=== PATIENT | male | born 1930 | race Caucasian/White ===

== ENCOUNTER 2018-02-25 11:18 | Inpatient (IN) | payer OTHER ==
[2018-02-25 13:05] VITALS: BMI 28.6
--- NOTE | 2018-02-25 13:56 | HP ---
Admission ROS [facility] [place] [facility] Chief Complaint: Patient presents for rehab services for ETOH dependence. Allergies/Adverse Reactions: Allergies Allergy/AdvReac Type Severity Reaction Status Date / Time No Known Allergies Allergy Verified 02/25/18 13:47 History of Present Illness: Patient presents for rehab services for ETOH dependence. Recently completed detox at [facility] from 02/19/18-02/24/18. Patient started drinking ETOH at age 67. Drinks up to one pint of vodka daily. Reports having seizure from ETOH use in 2014. Last drink 02/19/18. Patient denies history of Hep C and HIV. Refused to be tested. Has PMH of DM, HTN, HLD, BPH and constipation. Denies SI/HI and suicide attempts. Exam Limitations: No Limitations - Ebola screening Have you traveled outside of the country in the last 21 days: No Have you had contact with anyone from an Ebola affected area: No Have you been sick,other than usual withdrawal symptoms: No Do you have a fever: No - Review of Systems Constitutional: Loss of Appetite, Weight Stable EENT: reports: No Symptoms Reported Respiratory: reports: No Symptoms reported Cardiac: reports: No Symptoms Reported GI: reports: Constipated, Poor Fluid Intake : reports: Frequency Musculoskeletal: reports: Back Pain, Joint Pain Integumentary: reports: No Symptoms Reported Neuro: reports: Seizure, Unsteady Gait Endocrine: reports: No Symptoms Reported Hematology: reports: No Symptoms Reported Psychiatric: reports: Orientated x3, Anxious Patient History - Patient Medical History Hx Anemia: No Hx Asthma: No Hx Chronic Obstructive Pulmonary Disease (COPD): No Hx Cancer: No Hx Cardiac Disorders: No Hx Congestive Heart Failure: No Hx Hypertension: Yes Hx Hypercholesterolemia: Yes Hx Pacemaker: No HX Cerebrovascular Accident: No Hx Seizures: Yes (alcohol related in 2014) Hx Dementia: No Hx Diabetes: Yes (IDDM) Hx Gastrointestinal Disorders: No Hx Liver Disease: No Hx Genitourinary Disorders: No Hx Sexually Transmitted Disorders: No Hx Renal Disease (ESRD): No Hx Thyroid Disease: No Hx Human Immunodeficiency Virus (HIV): No Hx Hepatitis C: No Hx Depression: No Hx Suicide Attempt: No Hx Bipolar Disorder: No Hx Schizophrenia: No - Patient Surgical History Past Surgical History: Yes Hx Neurologic Surgery: No Hx Cataract Extraction: Yes (bilateral in 2015) Hx Cardiac Surgery: No Hx Lung Surgery: No Hx Breast Surgery: No Hx Breast Biopsy: No Hx Abdominal Surgery: No Hx Appendectomy: No Hx Cholecystectomy: No Hx Genitourinary Surgery: No Hx Section: No Hx Orthopedic Surgery: No Anesthesia Reaction: No - PPD History Previous Implant?: No Documented Results: Positive w/o proof PPD to be Administered?: No - Smoking Cessation Smoking history: Never smoked Have you smoked in the past 12 months: No Hx Chewing Tobacco Use: No Initiated information on smoking cessation: No - Substance & Tx. History Hx Alcohol Use: Yes Hx Substance Use: No Substance Use Type: Alcohol Hx Substance Use Treatment: Yes (S/P detox at [facility] 02/19-02/24/18) - Substances Abused Alcohol-vodka Route: Oral Frequency: Daily Amount used: 1 pt. Age of first use: 67 Date of Last Use: 02/19/18 Family Disease History - Family Disease History Family History: Denies Admission Physical Exam BHS - Vital Signs Vital Signs: Vital Signs - 24 hr 02/25/18 13:02 Temperature 99.7 F H Pulse Rate 98 H Respiratory 20 Rate Blood Pressure 137/87 - Physical General Appearance: Yes: No Apparent Distress, Appropriately Dressed, Anxious HEENTM: Yes: EOMI, Hearing grossly Normal, Normal ENT Inspection, Normocephalic , Normal Voice, MADAY, Pharynx Normal Respiratory: Yes: Chest Non-Tender, Lungs Clear, Normal Breath Sounds, No Respiratory Distress, No Accessory Muscle Use Neck: Yes: No masses,lesions,Nodules, Supple, Trachea in good position Breast: Yes: Breast Exam Deferred Cardiology: Yes: Regular Rhythm, Regular Rate, S1, S2 Abdominal: Yes: Normal Bowel Sounds, Non Tender, Soft Genitourinary: Yes: Frequency Back: Yes: Within Normal Limits Musculoskeletal: Yes: Back pain Extremities: Yes: Normal Inspection, Non-Tender Neurological: Yes: drop board man II-XII NML intact, Fully Oriented, Alert, Normal Response Integumentary: Yes: Normal Color, Dry, Warm Lymphatic: Yes: Within Normal Limits - Diagnostic (1) Alcohol dependence Current Visit: Yes Status: Acute Qualifiers: Substance use status: unspecified alcohol-induced disorder Qualified Code(s ): F10.29 - Alcohol dependence with unspecified alcohol-induced disorder (2) HTN (hypertension) Current Visit: Yes Status: Chronic Qualifiers: Hypertension type: essential hypertension Qualified Code(s): I10 - Essential (primary) hypertension (3) Diabetes 1.5, managed as type 2 Current Visit: Yes Status: Chronic (4) HLD (hyperlipidemia) Current Visit: Yes Status: Chronic Qualifiers: Hyperlipidemia type: unspecified Qualified Code(s): E78.5 - Hyperlipidemia , unspecified (5) Anxiety Current Visit: Yes Status: Suspected (6) BPH (benign prostatic hyperplasia) Current Visit: Yes Status: Acute Qualifiers: Lower urinary tract symptom detail: unspecified Cleared for Admission BHS - Detox or Rehab Claeared for Rehab Admission: Yes BHS Breath Alcohol Content Breath Alcohol Content: 0 Urine Drug Screen - Results Drug Screen Negative: No Urine Drug Screen Results: BZO-Benzodiazepines Inpatient Rehab Admission - Initial Determination Are CD services needed?: Yes Free of communicable disease: Yes Not in need of hospitalization: Yes - Rehab Admission Criteria Previous failed treatment: Yes Poor recovery environment: Yes Comorbidities: Yes Lacks judgement: Yes Patient is meeting Inpatient Rehab admission criteria:: Yes
[2018-02-25] MEDS ORDERED: ACETAMINOPHEN 325 MG TABLET (FP) PO PRN (13:59)
[2018-02-25] MEDS ORDERED: P-EPHED 60MG/TRIPROLIDI 2.5MG TABLET PO PRN (13:59)
[2018-02-25] MEDS ORDERED: LOPERAMIDE HCL 2 MG CAPSULE PO PRN (13:59)
[2018-02-25] MEDS ORDERED: hydrOXYzine PAMOATE 50 MG CAPSULE (FP) PO PRN (13:59)
[2018-02-25] MEDS ORDERED: MENTHOL/PHENOL 1 EACH UD MM PRN (13:59)
[2018-02-25] MEDS ORDERED: MAGNESIUM CITRATE 300 ML BOTTLE PO PRN (13:59)
[2018-02-25] MEDS ORDERED: MAG HYDROX/AL HYDROX/SIMETH 30 ML UNIT-DOSE CUP PO PRN (13:59)
[2018-02-25] MEDS ORDERED: MAGNESIUM HYDROX 2400MG/30ML ORAL SUSPENSION 30 ML CUP PO PRN (13:59)
[2018-02-25] MEDS ORDERED: MECLIZINE HCL 25 MG TABLET (FP) PO PRN (14:00)
[2018-02-25 16:18] LABS: HEMATOCRIT 42.6 % (35.4-49); HEMOGLOBIN 14.1 GM/dL (11.7-16.9); MCHC 33.2 g/dl (32.0-35.9); MEAN CELL VOLUME 96.5 fl (80-96); MEAN PLT VOLUME 11.2 fl (7.5-11.1); PLATELET COUNT 165 K/MM3 (134-434); RBC 4.42 M/mm3 (4.00-5.60); RDW 14.5 % (11.9-15.9); WHITE BLOOD COUNT 6.4 K/mm3 (4.0-10.0)
[2018-02-25 16:34] LABS: ALBUMIN 4.2 g/dl (3.4-5.0); ANION GAP 8 (8-16); BLOOD UREA NITROGEN 20 mg/dL (7-18); CALCIUM 9.2 mg/dL (8.5-10.1); CHLORIDE 104 mmol/L (98-107); CO2 25 mmol/L (21-32); CREATININE 2.2 mg/dL (0.7-1.3); GLUCOSE,RANDOM 296 mg/dL (74-106); POTASSIUM 4.1 mmol/L (3.5-5.1); SGOT/AST 50 U/L (15-37); SGPT/ALT 55 U/L (12-78); SODIUM 137 mmol/L (136-145)
[2018-02-25 16:35] LABS: ALK PHOS 164 U/L (45-117); BILIRUBIN,TOTAL 0.8 mg/dL (0.2-1.0); TOT PROT 8.4 g/dl (6.4-8.2)
[2018-02-25] MEDS: INSULIN SLIDING SCALE (NOVOLOG) 1 VIAL SQ SCH (17:42)
[2018-02-25] MEDS: ATORVASTATIN CA 80 MG TABLET (FP) PO SCH (21:14)
[2018-02-25] MEDS: THIAMINE HCL 100 MG TABLET (FP) PO SCH (21:14)
[2018-02-25] MEDS: GABAPENTIN 100 MG CAPSULE (FP) PO SCH (21:14)
[2018-02-25] MEDS: LATANOPROST 0.005% OPHTH SOLN 2.5ML BOTTLE OD SCH (21:15)
[2018-02-25] MEDS: BRIMONIDINE TARTRATE 0.2% OPHTHALMIC 5 ML BOTTLE OD SCH (21:16)
[2018-02-25] MEDS: INSULIN (LEVEMIR) 100 UNITS/ML UNITS SQ SCH (21:17)
[2018-02-25] MEDS ORDERED: MELATONIN 5 MG TABLETS PO PRN (22:00)
[2018-02-25] MEDS: PATIENT'S OWN MEDICATION (NON-FORMULARY) (Dorzolamide Hcl/Timolol Maleat [Cosopt Eye Drops OU SCH (22:29)
[2018-02-25] MEDS ORDERED: PT OWN MED DRAWER 7, Y5N ONE (22:31)
[2018-02-25 23:22] LABS: URINE APPEARANCE TURBID; URINE BILIRUBIN NEGATIVE (<2.0 mg/dL); URINE BLOOD NEGATIVE (NEGATIVE); URINE COLOR AMBER; URINE GLUCOSE (UA) 2+ (NEGATIVE); URINE KETONE NEGATIVE (NEGATIVE); URINE LEUK ESTERASE NEGATIVE (NEGATIVE); URINE NITRITE NEGATIVE (NEGATIVE); URINE UROBILINOGEN NEGATIVE mg/dL (0.2-1.0)
[2018-02-25 23:25] LABS: URINE PROTEIN 2+ (NEGATIVE)
[2018-02-25 23:32] LABS: URINE BACTERIA RARE /hpf (NONE SEEN); URINE MUCUS RARE
[2018-02-26] MEDS ORDERED: INSULIN (NOVOLOG) ASPART 100 UNITS/ML 10ML VIAL ONE (07:07)
[2018-02-26] MEDS: INSULIN SLIDING SCALE (NOVOLOG) 1 VIAL SQ SCH ×2 (07:07→16:56)
--- NOTE | 2018-02-26 08:49 | EKG ---
Test Reason : Blood Pressure : / mmHG Vent. Rate : 067 BPM Atrial Rate : 067 BPM P-R Int : 182 ms QRS Dur : 098 ms QT Int : 418 ms P-R-T Axes : 059 -51 026 degrees QTc Int : 441 ms NORMAL SINUS RHYTHM LEFT ANTERIOR FASCICULAR BLOCK MINIMAL VOLTAGE CRITERIA FOR LVH, MAY BE NORMAL VARIANT ABNORMAL ECG NO PREVIOUS ECGS AVAILABLE Confirmed by JULIA BAILEY, VERONICA ([id number]) on 02/26/2018 8:49:33 AM Referred By: Confirmed By:VERONICA DUMONT MD
[2018-02-26] MEDS: PRENATAL VITAMINS W/ FOLIC ACID TABLET (FP) PO SCH (10:09)
[2018-02-26] MEDS: amLODIPine BESYLATE 10 MG TABLET (FP) PO SCH (10:10)
[2018-02-26] MEDS: GABAPENTIN 100 MG CAPSULE (FP) PO SCH ×2 (10:10→21:09)
[2018-02-26] MEDS: FINASTERIDE 5 MG TABLET (FP) PO SCH (10:10)
[2018-02-26] MEDS: INSULIN (LEVEMIR) 100 UNITS/ML UNITS SQ SCH ×2 (10:10→21:12)
[2018-02-26] MEDS: BRIMONIDINE TARTRATE 0.2% OPHTHALMIC 5 ML BOTTLE OD SCH ×2 (10:10→21:12)
[2018-02-26] MEDS: PATIENT'S OWN MEDICATION (NON-FORMULARY) (Dorzolamide Hcl/Timolol Maleat [Cosopt Eye Drops OU SCH ×2 (10:10→21:12)
[2018-02-26] MEDS: PATIENT'S OWN MEDICATION (NON-FORMULARY) (Linaclotide [Linzess] 290 MCG) PO SCH (10:11)
--- NOTE | 2018-02-26 17:35 | EKG ---
Test Reason : Blood Pressure : / mmHG Vent. Rate : 059 BPM Atrial Rate : 059 BPM P-R Int : 188 ms QRS Dur : 102 ms QT Int : 448 ms P-R-T Axes : 046 -46 022 degrees QTc Int : 443 ms SINUS BRADYCARDIA LEFT ANTERIOR FASCICULAR BLOCK CANNOT RULE OUT ANTERIOR INFARCT , AGE UNDETERMINED ABNORMAL ECG WHEN COMPARED WITH ECG OF 25-FEB-2018 22:32, NO SIGNIFICANT CHANGE WAS FOUND Confirmed by VERONICA DUMONT MD ([id number]) on 02/26/2018 5:35:28 PM Referred By: Confirmed By:VERONICA DUMONT MD
[2018-02-26] MEDS: ATORVASTATIN CA 80 MG TABLET (FP) PO SCH (21:09)
[2018-02-26] MEDS: THIAMINE HCL 100 MG TABLET (FP) PO SCH (21:09)
[2018-02-26] MEDS: LATANOPROST 0.005% OPHTH SOLN 2.5ML BOTTLE OD SCH (21:13)
[2018-02-27] MEDS: INSULIN SLIDING SCALE (NOVOLOG) 1 VIAL SQ SCH ×2 (06:55→16:56)
[2018-02-27] MEDS: IBUPROFEN 400 MG TABLET (FP) PO PRN (07:38)
[2018-02-27] MEDS: INSULIN (LEVEMIR) 100 UNITS/ML UNITS SQ SCH ×2 (07:38→21:08)
[2018-02-27] MEDS: PATIENT'S OWN MEDICATION (NON-FORMULARY) (Dorzolamide Hcl/Timolol Maleat [Cosopt Eye Drops OU SCH ×2 (10:10→21:08)
[2018-02-27] MEDS: PATIENT'S OWN MEDICATION (NON-FORMULARY) (Linaclotide [Linzess] 290 MCG) PO SCH (10:10)
[2018-02-27] MEDS: BRIMONIDINE TARTRATE 0.2% OPHTHALMIC 5 ML BOTTLE OD SCH ×2 (10:10→21:08)
[2018-02-27] MEDS: PRENATAL VITAMINS W/ FOLIC ACID TABLET (FP) PO SCH (10:10)
[2018-02-27] MEDS: amLODIPine BESYLATE 10 MG TABLET (FP) PO SCH (10:10)
[2018-02-27] MEDS: GABAPENTIN 100 MG CAPSULE (FP) PO SCH ×2 (10:11→21:04)
[2018-02-27] MEDS: FINASTERIDE 5 MG TABLET (FP) PO SCH (10:11)
[2018-02-27] MEDS: ATORVASTATIN CA 80 MG TABLET (FP) PO SCH (21:05)
[2018-02-27] MEDS: THIAMINE HCL 100 MG TABLET (FP) PO SCH (21:05)
[2018-02-27] MEDS ORDERED: PT OWN MED DRAWER 7, Y5N ONE (21:06)
[2018-02-27] MEDS: LATANOPROST 0.005% OPHTH SOLN 2.5ML BOTTLE OD SCH (21:09)
[2018-02-28] MEDS: INSULIN SLIDING SCALE (NOVOLOG) 1 VIAL SQ SCH ×2 (06:20→16:58)
[2018-02-28] MEDS: INSULIN (LEVEMIR) 100 UNITS/ML UNITS SQ SCH ×2 (06:20→21:12)
[2018-02-28] MEDS ORDERED: PT OWN MED DRAWER 7, Y5N ONE ×3 (08:50→22:15)
[2018-02-28] MEDS: PRENATAL VITAMINS W/ FOLIC ACID TABLET (FP) PO SCH (09:47)
[2018-02-28] MEDS: GABAPENTIN 100 MG CAPSULE (FP) PO SCH ×2 (09:47→21:13)
[2018-02-28] MEDS: FINASTERIDE 5 MG TABLET (FP) PO SCH (09:47)
[2018-02-28] MEDS: PATIENT'S OWN MEDICATION (NON-FORMULARY) (Linaclotide [Linzess] 290 MCG) PO SCH (09:47)
[2018-02-28] MEDS: PATIENT'S OWN MEDICATION (NON-FORMULARY) (Dorzolamide Hcl/Timolol Maleat [Cosopt Eye Drops OU SCH ×2 (09:48→21:17)
[2018-02-28] MEDS: BRIMONIDINE TARTRATE 0.2% OPHTHALMIC 5 ML BOTTLE OD SCH ×2 (09:48→21:16)
[2018-02-28] MEDS: IBUPROFEN 400 MG TABLET (FP) PO PRN (09:49)
[2018-02-28] MEDS: amLODIPine BESYLATE 10 MG TABLET (FP) PO SCH (10:55)
--- NOTE | 2018-02-28 12:48 | HP ---
Psychiatrist Admission - Data Date of interview: 02/28/18 Admission source: [facility] Identifying data: First admission to [address] for this 87 y/o [place] -born male seeking rehabilitation treatment for alcohol dependence.Patient is ,a father of two,domiciled,retired and supported on Social Security benefits. Medical History: Remarkable for benign prostatic hyperplasia (BPH),diabetes mellitus,dyslipidemia,chronic lumbar pain,seizures-related withdrawal (2014) and a history of eye surgery (cataracts) in 2016.Patient ambulates with a walker. Psychiatric History: Patient denies. Physical/Sexual Abuse/Trauma History: Patient denies. Additional Comment: Urine Drug Screen Results: BZO-Benzodiazepines.Noted. Vital Signs: Vital Signs - 24 hr 02/28/18 02/28/18 02/28/18 00:30 03:30 07:01 Temperature 98.0 F Pulse Rate 71 Respiratory 18 18 18 Rate Blood Pressure 142/79 02/28/18 10:00 Temperature Pulse Rate 75 Respiratory 18 Rate Blood Pressure 148/84 Allergies/Adverse Reactions: Allergies Allergy/AdvReac Type Severity Reaction Status Date / Time No Known Allergies Allergy Verified 02/25/18 13:47 - Substance Abuse/Tx History Hx Alcohol Use: Yes Hx Substance Use: No (patient denies history of drug use.Denies nicotine abuse) Substance Use Type: Alcohol (patient started using alcohol at age 67 ; consumes one pint of vodka daily) Hx Substance Use Treatment: Yes (recent detoxification at [facility] 02/24/18) Mental Status Exam - Mental Status Exam Alert and Oriented to: Time, Place, Person Cognitive Function: Good (cognitively sharp and well-related to others + environment) Patient Appearance: Well Groomed (neat appearance,tidy,casually attired) Mood: Hopeful, Euthymic Affect: Appropriate, Normal Range Patient Behavior: Appropriate (pleasant,well-mannered), Cooperative Speech Pattern: Clear, Appropriate (relevant ; normal volume ; more comfortable with use of bengali ; decent frisian comprehension) Voice Loudness: Normal Thought Process: Intact, Goal Oriented Thought Disorder: Not Present Hallucinations: Denies Suicidal Ideation: Denies Homicidal Ideation: Denies Insight/Judgement: Fair Appetite: Fair Gait/Station: Other (slow gait ; patient uses a walker for ambulation) Psychiatric Findings - Problem List ([place] 1, 2,3) (1) Alcohol dependence Current Visit: Yes Status: Acute Qualifiers: Substance use status: unspecified alcohol-induced disorder Qualified Code(s ): F10.29 - Alcohol dependence with unspecified alcohol-induced disorder - Initial Treatment Plan Initial Treatment Plan: Falls precautions.Orientation to unit.Psychoeducation and support.Daily monitoring of clinical course.
[2018-02-28] MEDS: THIAMINE HCL 100 MG TABLET (FP) PO SCH (21:13)
[2018-02-28] MEDS: ATORVASTATIN CA 80 MG TABLET (FP) PO SCH (21:13)
[2018-02-28] MEDS: LATANOPROST 0.005% OPHTH SOLN 2.5ML BOTTLE OD SCH (21:17)
[2018-03-01] MEDS: INSULIN (LEVEMIR) 100 UNITS/ML UNITS SQ SCH ×2 (06:40→21:03)
[2018-03-01] MEDS: INSULIN SLIDING SCALE (NOVOLOG) 1 VIAL SQ SCH ×2 (06:40→17:20)
[2018-03-01] MEDS: amLODIPine BESYLATE 10 MG TABLET (FP) PO SCH (10:20)
[2018-03-01] MEDS: GABAPENTIN 100 MG CAPSULE (FP) PO SCH ×2 (10:20→21:01)
[2018-03-01] MEDS: PRENATAL VITAMINS W/ FOLIC ACID TABLET (FP) PO SCH (10:20)
[2018-03-01] MEDS: PATIENT'S OWN MEDICATION (NON-FORMULARY) (Linaclotide [Linzess] 290 MCG) PO SCH (10:21)
[2018-03-01] MEDS: BRIMONIDINE TARTRATE 0.2% OPHTHALMIC 5 ML BOTTLE OD SCH ×2 (10:21→22:11)
[2018-03-01] MEDS: PATIENT'S OWN MEDICATION (NON-FORMULARY) (Dorzolamide Hcl/Timolol Maleat [Cosopt Eye Drops OU SCH ×2 (10:22→22:12)
[2018-03-01] MEDS: FINASTERIDE 5 MG TABLET (FP) PO SCH (12:39)
[2018-03-01] MEDS: THIAMINE HCL 100 MG TABLET (FP) PO SCH (21:01)
[2018-03-01] MEDS: ATORVASTATIN CA 80 MG TABLET (FP) PO SCH (21:01)
[2018-03-01] MEDS: LATANOPROST 0.005% OPHTH SOLN 2.5ML BOTTLE OD SCH (21:03)
[2018-03-02] MEDS ORDERED: INSULIN (NOVOLOG) ASPART 100 UNITS/ML 10ML VIAL ONE (07:10)
[2018-03-02] MEDS: INSULIN (LEVEMIR) 100 UNITS/ML UNITS SQ SCH ×2 (07:21→21:17)
[2018-03-02] MEDS: INSULIN SLIDING SCALE (NOVOLOG) 1 VIAL SQ SCH ×2 (07:22→16:51)
[2018-03-02] MEDS: PRENATAL VITAMINS W/ FOLIC ACID TABLET (FP) PO SCH (10:42)
[2018-03-02] MEDS: PATIENT'S OWN MEDICATION (NON-FORMULARY) (Linaclotide [Linzess] 290 MCG) PO SCH (10:42)
[2018-03-02] MEDS: amLODIPine BESYLATE 10 MG TABLET (FP) PO SCH (10:42)
[2018-03-02] MEDS: FINASTERIDE 5 MG TABLET (FP) PO SCH (10:42)
[2018-03-02] MEDS: GABAPENTIN 100 MG CAPSULE (FP) PO SCH ×2 (10:42→21:15)
[2018-03-02] MEDS: BRIMONIDINE TARTRATE 0.2% OPHTHALMIC 5 ML BOTTLE OD SCH ×2 (10:45→21:17)
[2018-03-02] MEDS: PATIENT'S OWN MEDICATION (NON-FORMULARY) (Dorzolamide Hcl/Timolol Maleat [Cosopt Eye Drops OU SCH ×2 (10:45→21:17)
[2018-03-02] MEDS: THIAMINE HCL 100 MG TABLET (FP) PO SCH (21:15)
[2018-03-02] MEDS: ATORVASTATIN CA 80 MG TABLET (FP) PO SCH (21:15)
[2018-03-02] MEDS: LATANOPROST 0.005% OPHTH SOLN 2.5ML BOTTLE OD SCH (21:18)
[2018-03-03] MEDS: guaiFENesin/D-METHORPHAN HB 10 ML UNIT-DOSE CUPS PO PRN (05:58)
[2018-03-03] MEDS ORDERED: INSULIN (NOVOLOG) ASPART 100 UNITS/ML 10ML VIAL ONE (07:14)
[2018-03-03] MEDS: INSULIN SLIDING SCALE (NOVOLOG) 1 VIAL SQ SCH ×2 (07:25→16:49)
[2018-03-03] MEDS: INSULIN (LEVEMIR) 100 UNITS/ML UNITS SQ SCH ×2 (07:25→21:10)
[2018-03-03] MEDS: PRENATAL VITAMINS W/ FOLIC ACID TABLET (FP) PO SCH (10:05)
[2018-03-03] MEDS: GABAPENTIN 100 MG CAPSULE (FP) PO SCH ×2 (10:05→21:05)
[2018-03-03] MEDS: amLODIPine BESYLATE 10 MG TABLET (FP) PO SCH (10:06)
[2018-03-03] MEDS: BRIMONIDINE TARTRATE 0.2% OPHTHALMIC 5 ML BOTTLE OD SCH ×2 (10:06→21:09)
[2018-03-03] MEDS: PATIENT'S OWN MEDICATION (NON-FORMULARY) (Dorzolamide Hcl/Timolol Maleat [Cosopt Eye Drops OU SCH ×2 (10:06→21:10)
[2018-03-03] MEDS: PATIENT'S OWN MEDICATION (NON-FORMULARY) (Linaclotide [Linzess] 290 MCG) PO SCH (10:07)
[2018-03-03] MEDS: FINASTERIDE 5 MG TABLET (FP) PO SCH (10:45)
[2018-03-03] MEDS ORDERED: PT OWN MED DRAWER 7, Y5N ONE (20:42)
[2018-03-03] MEDS: ATORVASTATIN CA 80 MG TABLET (FP) PO SCH (21:05)
[2018-03-03] MEDS: THIAMINE HCL 100 MG TABLET (FP) PO SCH (21:10)
[2018-03-03] MEDS: LATANOPROST 0.005% OPHTH SOLN 2.5ML BOTTLE OD SCH (21:10)
[2018-03-04] MEDS: guaiFENesin/D-METHORPHAN HB 10 ML UNIT-DOSE CUPS PO PRN (06:04)
[2018-03-04] MEDS: INSULIN SLIDING SCALE (NOVOLOG) 1 VIAL SQ SCH ×2 (07:29→17:49)
[2018-03-04] MEDS: INSULIN (LEVEMIR) 100 UNITS/ML UNITS SQ SCH ×2 (07:29→22:28)
[2018-03-04] MEDS ORDERED: INSULIN (NOVOLOG) ASPART 100 UNITS/ML 10ML VIAL ONE ×2 (07:30→17:25)
--- NOTE | 2018-03-04 08:11 | PN ---
BHS Progress Note Note: responded to rapid response patient is shaking for 1 minute on arrival patient is alert oriented x 3 no seizure activity no chest pain, no sob heart normal heart sound,s1sr lung clear abdomen soft,no distension,no pain no calf tenderness bp 137/80,p69,r18,t98.8,pulse oxi 96 impression r/o seizure treatment close monitoring,vial signs,and seizure precaution,bgm monitoring
[2018-03-04] MEDS: GABAPENTIN 100 MG CAPSULE (FP) PO SCH ×2 (10:35→22:28)
[2018-03-04] MEDS: BRIMONIDINE TARTRATE 0.2% OPHTHALMIC 5 ML BOTTLE OD SCH ×2 (10:35→22:27)
[2018-03-04] MEDS: PRENATAL VITAMINS W/ FOLIC ACID TABLET (FP) PO SCH (10:36)
[2018-03-04] MEDS: FINASTERIDE 5 MG TABLET (FP) PO SCH (10:36)
[2018-03-04] MEDS: amLODIPine BESYLATE 10 MG TABLET (FP) PO SCH (10:36)
[2018-03-04] MEDS: PATIENT'S OWN MEDICATION (NON-FORMULARY) (Linaclotide [Linzess] 290 MCG) PO SCH (10:36)
[2018-03-04] MEDS: PATIENT'S OWN MEDICATION (NON-FORMULARY) (Dorzolamide Hcl/Timolol Maleat [Cosopt Eye Drops OU SCH ×2 (10:38→22:27)
--- NOTE | 2018-03-04 14:00 | PN ---
BHS Progress Note Note: Patient referred for c/o dizziness. Patient had episode of seizure this morning. Vital Signs Temperature 97.9 F 03/04/18 09:55 Pulse Rate 63 03/04/18 09:55 Respiratory Rate 20 03/04/18 09:55 Blood Pressure 127/66 03/04/18 09:55 O2 Sat by Pulse Oximetry (%) Subj: Patient c/o dizziness. Denies CP, SOB and headache. Obj: General: Awake and oriented x 3. In no acute distress. Examined while in bed Skin: warm and dry Car: S1S2 Resp: CTA BL Neuro: CN 1-X11 grossly intact. Alert and oriented. x 3 A/P: SZD Vertigo Continue with Meclizine as ordered patient is neurologically stable continue to monitor clinically
[2018-03-04] MEDS: ATORVASTATIN CA 80 MG TABLET (FP) PO SCH (22:28)
[2018-03-04] MEDS: THIAMINE HCL 100 MG TABLET (FP) PO SCH (22:28)
[2018-03-04] MEDS: LATANOPROST 0.005% OPHTH SOLN 2.5ML BOTTLE OD SCH (22:30)
[2018-03-05] MEDS: INSULIN SLIDING SCALE (NOVOLOG) 1 VIAL SQ SCH ×2 (06:34→17:00)
[2018-03-05] MEDS: INSULIN (LEVEMIR) 100 UNITS/ML UNITS SQ SCH ×2 (06:34→21:35)
[2018-03-05] MEDS ORDERED: INSULIN (NOVOLOG) ASPART 100 UNITS/ML 10ML VIAL ONE ×2 (07:14→17:05)
[2018-03-05] MEDS: BRIMONIDINE TARTRATE 0.2% OPHTHALMIC 5 ML BOTTLE OD SCH ×2 (10:28→21:32)
[2018-03-05] MEDS: PATIENT'S OWN MEDICATION (NON-FORMULARY) (Dorzolamide Hcl/Timolol Maleat [Cosopt Eye Drops OU SCH ×2 (10:28→21:32)
[2018-03-05] MEDS: PRENATAL VITAMINS W/ FOLIC ACID TABLET (FP) PO SCH (10:29)
[2018-03-05] MEDS: FINASTERIDE 5 MG TABLET (FP) PO SCH (10:29)
[2018-03-05] MEDS: PATIENT'S OWN MEDICATION (NON-FORMULARY) (Linaclotide [Linzess] 290 MCG) PO SCH (10:29)
[2018-03-05] MEDS: amLODIPine BESYLATE 10 MG TABLET (FP) PO SCH (10:29)
[2018-03-05] MEDS: GABAPENTIN 100 MG CAPSULE (FP) PO SCH ×2 (10:29→21:33)
[2018-03-05] MEDS: THIAMINE HCL 100 MG TABLET (FP) PO SCH (21:33)
[2018-03-05] MEDS: LATANOPROST 0.005% OPHTH SOLN 2.5ML BOTTLE OD SCH (21:33)
[2018-03-05] MEDS: ATORVASTATIN CA 80 MG TABLET (FP) PO SCH (21:34)
[2018-03-06] MEDS: INSULIN (LEVEMIR) 100 UNITS/ML UNITS SQ SCH ×2 (06:24→21:37)
[2018-03-06] MEDS: INSULIN SLIDING SCALE (NOVOLOG) 1 VIAL SQ SCH ×2 (06:24→17:43)
[2018-03-06] MEDS ORDERED: INSULIN (NOVOLOG) ASPART 100 UNITS/ML 10ML VIAL ONE ×2 (06:48→17:05)
[2018-03-06] MEDS: amLODIPine BESYLATE 10 MG TABLET (FP) PO SCH (10:12)
[2018-03-06] MEDS: PRENATAL VITAMINS W/ FOLIC ACID TABLET (FP) PO SCH (10:12)
[2018-03-06] MEDS: GABAPENTIN 100 MG CAPSULE (FP) PO SCH ×2 (10:12→21:34)
[2018-03-06] MEDS: PATIENT'S OWN MEDICATION (NON-FORMULARY) (Linaclotide [Linzess] 290 MCG) PO SCH (10:12)
[2018-03-06] MEDS: FINASTERIDE 5 MG TABLET (FP) PO SCH (10:12)
[2018-03-06] MEDS: PATIENT'S OWN MEDICATION (NON-FORMULARY) (Dorzolamide Hcl/Timolol Maleat [Cosopt Eye Drops OU SCH ×2 (10:14→21:36)
[2018-03-06] MEDS: BRIMONIDINE TARTRATE 0.2% OPHTHALMIC 5 ML BOTTLE OD SCH ×2 (10:54→21:35)
[2018-03-06] MEDS: ATORVASTATIN CA 80 MG TABLET (FP) PO SCH (21:34)
[2018-03-06] MEDS: THIAMINE HCL 100 MG TABLET (FP) PO SCH (21:34)
[2018-03-06] MEDS: LATANOPROST 0.005% OPHTH SOLN 2.5ML BOTTLE OD SCH (21:37)
--- NOTE | 2018-03-06 22:47 | EKG ---
Test Reason : Blood Pressure : / mmHG Vent. Rate : 061 BPM Atrial Rate : 061 BPM P-R Int : 182 ms QRS Dur : 098 ms QT Int : 416 ms P-R-T Axes : 036 -49 007 degrees QTc Int : 418 ms NORMAL SINUS RHYTHM LEFT ANTERIOR FASCICULAR BLOCK MODERATE VOLTAGE CRITERIA FOR LVH, MAY BE NORMAL VARIANT ABNORMAL ECG WHEN COMPARED WITH ECG OF 26-FEB-2018 11:15, NO SIGNIFICANT CHANGE WAS FOUND Confirmed by JERRI CAMPOVERDE MD ([id number]) on 03/06/2018 10:46:53 PM Referred By: Confirmed By:JERRI CAMPOVERDE MD
[2018-03-07] MEDS: INSULIN (LEVEMIR) 100 UNITS/ML UNITS SQ SCH ×2 (06:35→21:19)
[2018-03-07] MEDS: INSULIN SLIDING SCALE (NOVOLOG) 1 VIAL SQ SCH ×2 (06:36→17:06)
[2018-03-07] MEDS: FINASTERIDE 5 MG TABLET (FP) PO SCH (09:52)
[2018-03-07] MEDS: GABAPENTIN 100 MG CAPSULE (FP) PO SCH ×2 (09:52→21:15)
[2018-03-07] MEDS: PATIENT'S OWN MEDICATION (NON-FORMULARY) (Dorzolamide Hcl/Timolol Maleat [Cosopt Eye Drops OU SCH ×2 (09:53→21:19)
[2018-03-07] MEDS: BRIMONIDINE TARTRATE 0.2% OPHTHALMIC 5 ML BOTTLE OD SCH ×2 (09:53→21:18)
[2018-03-07] MEDS: PATIENT'S OWN MEDICATION (NON-FORMULARY) (Linaclotide [Linzess] 290 MCG) PO SCH (09:53)
[2018-03-07] MEDS: amLODIPine BESYLATE 10 MG TABLET (FP) PO SCH (09:53)
[2018-03-07] MEDS: PRENATAL VITAMINS W/ FOLIC ACID TABLET (FP) PO SCH (09:53)
[2018-03-07] MEDS: IBUPROFEN 400 MG TABLET (FP) PO PRN (09:54)
[2018-03-07] MEDS ORDERED: INSULIN (NOVOLOG) ASPART 100 UNITS/ML 10ML VIAL ONE (16:58)
[2018-03-07] MEDS: ATORVASTATIN CA 80 MG TABLET (FP) PO SCH (21:15)
[2018-03-07] MEDS: THIAMINE HCL 100 MG TABLET (FP) PO SCH (21:15)
[2018-03-07] MEDS: LATANOPROST 0.005% OPHTH SOLN 2.5ML BOTTLE OD SCH (21:18)
[2018-03-08] MEDS ORDERED: INSULIN (NOVOLOG) ASPART 100 UNITS/ML 10ML VIAL ONE ×2 (07:22→22:26)
[2018-03-08] MEDS: INSULIN (LEVEMIR) 100 UNITS/ML UNITS SQ SCH ×2 (07:28→21:19)
[2018-03-08] MEDS: INSULIN SLIDING SCALE (NOVOLOG) 1 VIAL SQ SCH ×2 (07:29→16:48)
[2018-03-08] MEDS: GABAPENTIN 100 MG CAPSULE (FP) PO SCH ×2 (10:04→21:16)
[2018-03-08] MEDS: FINASTERIDE 5 MG TABLET (FP) PO SCH (10:04)
[2018-03-08] MEDS: PRENATAL VITAMINS W/ FOLIC ACID TABLET (FP) PO SCH (10:04)
[2018-03-08] MEDS: amLODIPine BESYLATE 10 MG TABLET (FP) PO SCH (10:04)
[2018-03-08] MEDS: PATIENT'S OWN MEDICATION (NON-FORMULARY) (Linaclotide [Linzess] 290 MCG) PO SCH (10:04)
[2018-03-08] MEDS: PATIENT'S OWN MEDICATION (NON-FORMULARY) (Dorzolamide Hcl/Timolol Maleat [Cosopt Eye Drops OU SCH ×2 (10:05→21:20)
[2018-03-08] MEDS: BRIMONIDINE TARTRATE 0.2% OPHTHALMIC 5 ML BOTTLE OD SCH ×2 (10:05→21:20)
[2018-03-08] MEDS: IBUPROFEN 400 MG TABLET (FP) PO PRN ×2 (10:05→21:17)
[2018-03-08] MEDS: ATORVASTATIN CA 80 MG TABLET (FP) PO SCH (21:16)
[2018-03-08] MEDS: THIAMINE HCL 100 MG TABLET (FP) PO SCH (21:16)
[2018-03-08] MEDS: LATANOPROST 0.005% OPHTH SOLN 2.5ML BOTTLE OD SCH (21:19)
[2018-03-09] MEDS: IBUPROFEN 400 MG TABLET (FP) PO PRN (06:33)
[2018-03-09] MEDS ORDERED: INSULIN (NOVOLOG) ASPART 100 UNITS/ML 10ML VIAL ONE ×3 (07:22→22:03)
[2018-03-09] MEDS: INSULIN SLIDING SCALE (NOVOLOG) 1 VIAL SQ SCH ×2 (07:34→16:44)
[2018-03-09] MEDS: INSULIN (LEVEMIR) 100 UNITS/ML UNITS SQ SCH ×2 (07:34→21:10)
[2018-03-09] MEDS: PRENATAL VITAMINS W/ FOLIC ACID TABLET (FP) PO SCH (10:05)
[2018-03-09] MEDS: amLODIPine BESYLATE 10 MG TABLET (FP) PO SCH (10:05)
[2018-03-09] MEDS: GABAPENTIN 100 MG CAPSULE (FP) PO SCH ×2 (10:05→21:10)
[2018-03-09] MEDS: PATIENT'S OWN MEDICATION (NON-FORMULARY) (Linaclotide [Linzess] 290 MCG) PO SCH (10:06)
[2018-03-09] MEDS: PATIENT'S OWN MEDICATION (NON-FORMULARY) (Dorzolamide Hcl/Timolol Maleat [Cosopt Eye Drops OU SCH ×2 (10:06→21:10)
[2018-03-09] MEDS: FINASTERIDE 5 MG TABLET (FP) PO SCH (10:06)
[2018-03-09] MEDS: BRIMONIDINE TARTRATE 0.2% OPHTHALMIC 5 ML BOTTLE OD SCH ×2 (10:06→21:10)
[2018-03-09] MEDS: LATANOPROST 0.005% OPHTH SOLN 2.5ML BOTTLE OD SCH (21:10)
[2018-03-09] MEDS: ATORVASTATIN CA 80 MG TABLET (FP) PO SCH (21:10)
[2018-03-09] MEDS: THIAMINE HCL 100 MG TABLET (FP) PO SCH (21:10)
[2018-03-10] MEDS ORDERED: INSULIN (NOVOLOG) ASPART 100 UNITS/ML 10ML VIAL ONE (06:41)
[2018-03-10] MEDS: INSULIN (LEVEMIR) 100 UNITS/ML UNITS SQ SCH ×2 (07:06→21:19)
[2018-03-10] MEDS: INSULIN SLIDING SCALE (NOVOLOG) 1 VIAL SQ SCH ×2 (07:07→16:57)
[2018-03-10] MEDS ORDERED: PT OWN MED DRAWER 7, Y5N ONE ×2 (09:01→19:52)
--- NOTE | 2018-03-10 09:49 | PN ---
Psychiatric Progress Note Vital Signs: Vital Signs Period Temp Pulse Resp BP Sys/Santoyo Pulse Ox Last 24 Hr 97.8 F 75-81 18-18 131-142/78-82 Date of Session: 03/10/18 Chief Complaint:: Discharge Note HPI: Patient addressing Alcohol Dependence ROS: HTN, HLD, Type 2 DM, Alcohol withdrawal seizure, BPH, S/P Cataract surgery both eyes Current Medications: Active Medications Generic Name Dose Route Start Last Admin Trade Name Freq PRN Reason Stop Dose Admin Acetaminophen 650 mg 02/25/18 13:59 03/02/18 06:38 Tylenol - PO 650 mg Q4H PRN Administration FEVER Amlodipine Besylate 10 mg 02/26/18 10:00 03/09/18 10:05 Norvasc - PO 10 mg DAILY KINGS Administration Atorvastatin Calcium 80 mg 02/25/18 22:00 03/09/18 21:10 Lipitor - PO 80 mg HS KINGS Administration Brimonidine Tartrate 1 drop 02/25/18 22:00 03/09/18 21:10 Alphagan 0.2% - OD 1 drop BID KINGS Administration Eucalyptus/Menthol/Phenol/Sorbitol 1 each 02/25/18 13:59 Cepastat Lozenge - MM Q4H PRN SORE THROAT Finasteride 5 mg 02/26/18 10:00 03/09/18 10:06 Proscar - PO 5 mg DAILY KINGS Administration Gabapentin 200 mg 02/25/18 22:00 03/09/18 21:10 Neurontin - PO 200 mg BID KINGS Administration Guaifenesin 10 ml 02/25/18 13:59 03/04/18 06:04 Robitussin Dm - PO 10 ml Q6H PRN Administration COUGH Hydroxyzine Pamoate 50 mg 02/25/18 13:59 Vistaril - PO Q4H PRN AGITATION Ibuprofen 400 mg 02/25/18 13:59 03/09/18 06:33 Motrin - PO 400 mg Q6H PRN Administration Pain level 4-6 Insulin Aspart 1 vial 02/25/18 16:30 03/10/18 07:07 Novolog Vial Sliding Scale - SQ 2 units BIDAC KINGS Administration Protocol Insulin Detemir 20 units 02/26/18 22:00 03/10/18 07:06 Levemir Vial SQ 20 units BID@0700,2200 KINGS Administration Latanoprost 1 drop 02/25/18 22:00 03/09/18 21:10 Xalatan 0.005% Eye Drops - OD 1 drop HS KINGS Administration Loperamide HCl 4 mg 02/25/18 13:59 Imodium - PO Q6H PRN DIARRHEA Meclizine HCl 25 mg 02/25/18 14:00 03/04/18 14:02 Antivert - PO 25 mg TID PRN Administration VERTIGO Melatonin 5 mg 02/25/18 22:00 Melatonin PO HS PRN INSOMNIA Non-Formulary Medication 1 drop 02/25/18 22:00 03/09/18 21:10 Dorzolamide Hcl/Timolol Maleat [Cosopt Eye Drops] OU 1 drop BID KINGS Administration Non-Formulary Medication 290 mcg 02/26/18 10:00 03/09/18 10:06 Linaclotide [Linzess] PO Not Given DAILY KINGS Multivit/Folic Acid/Iron 1 tab 02/26/18 10:00 03/09/18 10:05 Vitamins (Sjr) - PO 1 tab DAILY KINGS Administration Pseudoephedrine/Triprolidine 1 combo 02/25/18 13:59 Actifed - PO TID PRN NASAL CONGESTION Thiamine HCl 100 mg 02/25/18 22:00 03/09/18 21:10 Vitamin B1 - PO 100 mg HS KINGS Administration Current Side Effect: No Lab tests ordered: Yes Lab tests reviewed: Yes Provider note:: Patient will complete this program on 03/11/18. He has met his treatment goals and will continue to address his issues in outpatient treatment at [facility]. He is stable for discharge on 03/11/18 Total face to face time:: 35 Mental Status Exam - Mental Status Exam Alert and Oriented to: Time, Place, Person Cognitive Function: Fair Patient Appearance: Well Groomed Mood: Hopeful, Euthymic Affect: Appropriate Patient Behavior: Cooperative Speech Pattern: Clear Voice Loudness: Normal Thought Process: Intact, Goal Oriented Thought Disorder: Not Present Hallucinations: Denies Suicidal Ideation: Denies Homicidal Ideation: Denies Insight/Judgement: Fair Sleep: Fair Appetite: Good Muscle strength/Tone: Normal Gait/Station: Normal Psychiatric Treatment Plan - Problem List (1) Alcohol dependence Current Visit: Yes Qualifiers: Substance use status: unspecified alcohol-induced disorder Qualified Code(s ): F10.29 - Alcohol dependence with unspecified alcohol-induced disorder (2) BPH (benign prostatic hyperplasia) Current Visit: Yes Qualifiers: Lower urinary tract symptom detail: unspecified (3) Diabetes 1.5, managed as type 2 Current Visit: Yes (4) HLD (hyperlipidemia) Current Visit: Yes Qualifiers: Hyperlipidemia type: unspecified Qualified Code(s): E78.5 - Hyperlipidemia , unspecified Initial treatment plan: Patient will be discharged tomorrow and referred to [facility] for outpatient treatment
[2018-03-10] MEDS: FINASTERIDE 5 MG TABLET (FP) PO SCH (10:02)
[2018-03-10] MEDS: GABAPENTIN 100 MG CAPSULE (FP) PO SCH ×2 (10:02→21:16)
[2018-03-10] MEDS: amLODIPine BESYLATE 10 MG TABLET (FP) PO SCH (10:02)
[2018-03-10] MEDS: PRENATAL VITAMINS W/ FOLIC ACID TABLET (FP) PO SCH (10:02)
[2018-03-10] MEDS: PATIENT'S OWN MEDICATION (NON-FORMULARY) (Linaclotide [Linzess] 290 MCG) PO SCH (10:02)
[2018-03-10] MEDS: BRIMONIDINE TARTRATE 0.2% OPHTHALMIC 5 ML BOTTLE OD SCH ×2 (10:03→21:14)
[2018-03-10] MEDS: IBUPROFEN 400 MG TABLET (FP) PO PRN (10:04)
[2018-03-10] MEDS: PATIENT'S OWN MEDICATION (NON-FORMULARY) (Dorzolamide Hcl/Timolol Maleat [Cosopt Eye Drops OU SCH ×2 (10:05→21:14)
[2018-03-10] MEDS: LATANOPROST 0.005% OPHTH SOLN 2.5ML BOTTLE OD SCH (21:12)
[2018-03-10] MEDS: THIAMINE HCL 100 MG TABLET (FP) PO SCH (21:14)
[2018-03-10] MEDS: ATORVASTATIN CA 80 MG TABLET (FP) PO SCH (21:14)
[2018-03-11] MEDS ORDERED: INSULIN (NOVOLOG) ASPART 100 UNITS/ML 10ML VIAL ONE (07:19)
[2018-03-11] MEDS: INSULIN (LEVEMIR) 100 UNITS/ML UNITS SQ SCH (07:27)
[2018-03-11] MEDS: INSULIN SLIDING SCALE (NOVOLOG) 1 VIAL SQ SCH (07:27)
[2018-03-11 07:56] VITALS: TEMP 98.1
[2018-03-11] MEDS ORDERED: PT OWN MED DRAWER 7, Y5N ONE (09:14)
[2018-03-11] MEDS: amLODIPine BESYLATE 10 MG TABLET (FP) PO SCH (09:52)
[2018-03-11] MEDS: GABAPENTIN 100 MG CAPSULE (FP) PO SCH (09:52)
[2018-03-11] MEDS: FINASTERIDE 5 MG TABLET (FP) PO SCH (09:53)
[2018-03-11] MEDS: PRENATAL VITAMINS W/ FOLIC ACID TABLET (FP) PO SCH (09:53)
[2018-03-11] MEDS: PATIENT'S OWN MEDICATION (NON-FORMULARY) (Linaclotide [Linzess] 290 MCG) PO SCH (09:53)
[2018-03-11] MEDS: PATIENT'S OWN MEDICATION (NON-FORMULARY) (Dorzolamide Hcl/Timolol Maleat [Cosopt Eye Drops OU SCH (09:54)
[2018-03-11] MEDS: BRIMONIDINE TARTRATE 0.2% OPHTHALMIC 5 ML BOTTLE OD SCH (09:54)
[2018-03-11 10:22] VITALS: BP 150/77; PULSE 73
== END 2018-03-11 10:40 | disposition home or self-care (01) | DRG 895 ==
LOC: YASAS 11:18 → Y3W 15:06
PROVIDERS: ADMIT Psychiatry & Neurology Psychiatry; ATTEND Psychiatry & Neurology Psychiatry
PROC: HZ42ZZZ Group Counseling for Substance Abuse Treatment, Cognitive-Behavioral (ICD-10-PCS; principal; 2018-02-25)
DX: F10.29 Alcohol dependence with unspecified alcohol-induced disorder (principal); I10 Essential (primary) hypertension; N40.0 Benign prostatic hyperplasia without lower urinary tract symptoms; E13.9 Other specified diabetes mellitus without complications; E78.5 Hyperlipidemia, unspecified; R42 Dizziness and giddiness; Z79.4 Long term (current) use of insulin; Z86.69 Personal history of other diseases of the nervous system and sense organs
CPT/HCPCS: 36415; 71046-TC-FY; 80053; 81003; 81015; 82962; 85027; 86593; 93005; 93010